=== PATIENT | female | born 1930 | race Two or more races ===

== ENCOUNTER 2019-01-21 13:55 | Emergency (ER) | payer SELFPAY ==
[~2019-01-21] VITALS: Ht 149.9 cm; Wt 46.0 kg
[2019-01-21 13:57] VITALS: BP 149/59
== END 2019-01-22 00:19 | disposition left against medical advice (07) ==
LOC: ER 13:55
DX: Z53.21 Procedure and treatment not carried out due to patient leaving prior to being seen by health care provider (principal)

== ENCOUNTER 2019-07-15 20:58 | Emergency (ER) | payer SELFPAY ==
[~2019-07-15] VITALS: Ht 147.3 cm; Wt 48.0 kg
[2019-07-16 00:58] VITALS: BP 151/55
== END 2019-07-16 01:50 | disposition home or self-care (01) ==
LOC: ER 20:58
DX: I10 Essential (primary) hypertension (principal)
CPT/HCPCS: 93005; 99283